=== PATIENT | female | born 1980 | race African-American/Black ===

== ENCOUNTER 2018-02-18 15:09 | Emergency (ER) | payer OTHER, BC ==
[~2018-02-18] VITALS: Ht 170.2 cm; Wt 124.5 kg
[2018-02-18] MEDS ORDERED: COMBIVIR 1501 COMBO PO (15:31)
[2018-02-18 15:52] LABS: HEMATOCRIT 38.7 % (37.0-47.0); IMMATURE GRANULOCYTES 0.3 % (0.0-5.0); MEAN CELL VOLUME 91.3 fL CALC (80.0-100.0); MEAN CORPUSCULAR HGB 28.3 pG CALC (26.0-32.0); NEUT# 4.94 thou/uL (2.00-7.15); RED BLOOD COUNT 4.24 mill/uL (4.20-5.60)
[2018-02-18] MEDS ORDERED: LYRICA50 MG PO (15:56)
[2018-02-18 16:09] LABS: ALBUMIN 4.1 g/dL (3.2-5.0); ALKALINE PHOSPHATASE 75 u/l (38-126); ANION GAP 11 (6-22 (CALC)); BILIRUBIN, TOTAL 0.3 mg/dL (0.0-1.4); BUN 15 mg/dL (7-17); BUN/CREATININE RATIO 20 (12-20 (CALC)); CARBON DIOXIDE 28 mmol/l (22-30); CHLORIDE 107 mmol/l (95-108); CPK 101 u/l (30-165); CREATININE 0.8 mg/dL (0.5-1.0); GFR > 60 ML/MIN (>=60 (CALC)); GFR FOR AFR.AMER. > 60 ML/MIN (>=60 (CALC)); POTASSIUM 4.3 mmol/l (3.5-5.1); SGOT/AST 22 u/l (14-36); SGPT/ALT 32 u/l (9-52); SODIUM 142 mmol/l (137-146)
[2018-02-18 16:12] LABS: HCG SERUM/URINE (NEG/POS) NEGATIVE (NEGATIVE)
[2018-02-18 17:30] VITALS: BP 129/80
== END 2018-02-18 17:30 | disposition home or self-care (01) | DRG 605 ==
LOC: ED 15:09
PROVIDERS: Family Medicine
DX: S61.231A Puncture wound without foreign body of left index finger without damage to nail, initial encounter (principal); M79.7 Fibromyalgia; W46.1XXA Contact with contaminated hypodermic needle, initial encounter; Y93.F9 Activity, other caregiving; Y92.149 Unspecified place in prison as the place of occurrence of the external cause; Y99.0 Civilian activity done for income or pay; Z20.6 Contact with and (suspected) exposure to human immunodeficiency virus [HIV]